=== PATIENT | male | born 1970 | race Hispanic/Latino ===

== ENCOUNTER 2017-11-26 04:10 | Emergency (ER) | payer OTHER ==
--- NOTE | 2017-11-26 04:30 | EDPHYS ---
Physician Documentation [facility] Name: Waqar Sebastian Age: 47 yrs Sex: Male : 1970 Arrival Date: 11/26/2017 Time: 04:12 Bed 5 Private MD: ED Physician Da Garcia HPI: 11/26 04:27 This 47 yrs old Male presents to ER via Ambulatory with complaints of Allergic pkl Reaction. 04:27 The patient's rash thought to be caused by an unknown cause. The rash is located on the pkl body diffusely. The rash can be described as urticarial. Onset: The symptoms/episode began/occurred 2 week(s) ago. Associated signs and symptoms: Pertinent positives: itching. Historical: - Allergies: 04:24 No Known Allergies; bb - Home Meds: 04:24 None [Active]; bb - PMHx: 04:24 None; bb - PSHx: 04:24 None; bb - Immunization history:: Adult Immunizations up to date. - Social history:: Smoking status: Patient/guardian denies using tobacco, Patient/guardian denies using alcohol, street drugs. - Ebola Screening: : No symptoms or risks identified at this time. ROS: 04:27 Eyes: Negative for injury, pain, redness, and discharge, ENT: Negative for injury, pkl pain, and discharge, Neck: Negative for injury, pain, and swelling, Cardiovascular: Negative for chest pain, palpitations, and edema, Respiratory: Negative for shortness of breath, cough, wheezing, and pleuritic chest pain, Abdomen/GI: Negative for abdominal pain, nausea, vomiting, diarrhea, and constipation, Back: Negative for injury and pain, : Negative for injury, bleeding, discharge, and swelling, MS/Extremity: Negative for injury and deformity, Neuro: Negative for headache, weakness, numbness, tingling, and seizure. 04:27 Skin: Positive for rash, diffusely. Exam: 04:27 Head/Face: Normocephalic, atraumatic. Eyes: Pupils equal round and reactive to light, pkl extra-ocular motions intact. Lids and lashes normal. Conjunctiva and sclera are non-icteric and not injected. Cornea within normal limits. Periorbital areas with no swelling, redness, or edema. ENT: Nares patent. No nasal discharge, no septal abnormalities noted. Tympanic membranes are normal and external auditory canals are clear. Oropharynx with no redness, swelling, or masses, exudates, or evidence of obstruction, uvula midline. Mucous membranes moist. Neck: Trachea midline, no thyromegaly or masses palpated, and no cervical lymphadenopathy. Supple, full range of motion without nuchal rigidity, or vertebral point tenderness. No Meningismus. Chest/axilla: Normal chest wall appearance and motion. Nontender with no deformity. No lesions are appreciated. Cardiovascular: Regular rate and rhythm with a normal S1 and S2. No gallops, murmurs, or rubs. Normal PMI, no JVD. No pulse deficits. Respiratory: Lungs have equal breath sounds bilaterally, clear to auscultation and percussion. No rales, rhonchi or wheezes noted. No increased work of breathing, no retractions or nasal flaring. Abdomen/GI: Soft, non-tender, with normal bowel sounds. No distension or tympany. No guarding or rebound. No evidence of tenderness throughout. Back: No spinal tenderness. No costovertebral tenderness. Full range of motion. MS/ Extremity: Pulses equal, no cyanosis. Neurovascular intact. Full, normal range of motion. Neuro: Awake and alert, GCS 15, oriented to person, place, time, and situation. Cranial nerves II-XII grossly intact. Motor strength 5/5 in all extremities. Sensory grossly intact. Cerebellar exam normal. Normal gait. 04:27 Skin: rash can be described as urticarial, and is diffusely located. Vital Signs: 04:24 BP 141 / 95; Pulse 63; Resp 16 S; Temp 98.4(O); Pulse Ox 96% on R/A; Weight 83.91 kg bb (R); Height 5 ft. 11 in. (180.34 cm) (R); Pain 6/10; 04:24 Body Mass Index 25.80 (83.91 kg, 180.34 cm) bb MDM: 04:15 Patient medically screened. pkl 04:27 Data reviewed: vital signs, nurses notes. pkl Administered Medications: 04:32 Drug: SOLU-Medrol 125 mg Route: IM; Site: left gluteus; bs1 04:37 Follow up: Response: No adverse reaction bp Disposition: 11/26/17 04:30 Discharged to Home. Impression: Urticaria. - Condition is Stable. - Medication Reconciliation Form, Thank You Letter, Antibiotic Education, Prescription Opioid Use form. - Follow up: Rio Burks MD; When: 2 - 3 days; Reason: Re-evaluation by your physician. - Problem is new. - Symptoms have improved. Signatures: Da Garcia MD MD pkl Amy Sullivan, RN RN bb Veronica Bryant RN RN bs1 Niels Sr RN bp Corrections: (The following items were deleted from the chart) 04:38 04:30 11/26/2017 04:30 Discharged to Home. Impression: Urticaria. Condition is Stable. bb Forms are Medication Reconciliation Form, Thank You Letter, Antibiotic Education, Prescription Opioid Use. Follow up: Rio Burks; When: 2 - 3 days; Reason: Re-evaluation by your physician. Problem is new. Symptoms have improved. pkl
--- NOTE | 2017-11-26 04:30 | ER ---
Nurse's Notes [facility] Name: Waqar Sebastian Age: 47 yrs Sex: Male : 1970 Arrival Date: 11/26/2017 Time: 04:12 Bed 5 Private MD: Diagnosis: Urticaria Presentation: 11/26 04:21 Presenting complaint: Patient states: he has some type of "bumps" on his neck his bb elbows, his forearms and his hands for about 2 weeks which is itchy. Transition of care: patient was not received from another setting of care. Onset: The symptoms/episode began/occurred 2 week(s) ago. Anaphylaxis evaluation, no signs or symptoms of anaphylaxis were noted. Onset of symptoms is unknown. Risk Assessment: Do you want to hurt yourself or someone else? Patient reports no desire to harm self or others. Risk Assessment: Do you want to hurt yourself or someone else? Patient reports no desire to harm self or others. Initial Sepsis Screen: Does the patient meet any 2 criteria? No. Patient's initial sepsis screen is negative. Does the patient have a suspected source of infection? No. Patient's initial sepsis screen is negative. Care prior to arrival: None. 04:21 Method Of Arrival: Ambulatory bb 04:21 Acuity: PAPI 5 bb Historical: - Allergies: 04:24 No Known Allergies; bb - Home Meds: 04:24 None [Active]; bb - PMHx: 04:24 None; bb - PSHx: 04:24 None; bb - Immunization history:: Adult Immunizations up to date. - Social history:: Smoking status: Patient/guardian denies using tobacco, Patient/guardian denies using alcohol, street drugs. - Ebola Screening: : No symptoms or risks identified at this time. Screenin:32 Abuse screen: Denies threats or abuse. Denies injuries from another. Nutritional bp screening: No deficits noted. Tuberculosis screening: No symptoms or risk factors identified. Fall Risk None identified. Assessment: 04:20 General: Appears in no apparent distress. comfortable, Behavior is calm, cooperative, bp appropriate for age. Pain: Denies pain. Neuro: Level of Consciousness is awake, alert, obeys commands, Oriented to person, place, time, situation, Appropriate for age. Cardiovascular: No deficits noted. Respiratory: Airway is patent Respiratory effort is even, unlabored, Respiratory pattern is regular, symmetrical, Breath sounds are clear bilaterally. GI: No signs and/or symptoms were reported involving the gastrointestinal system. : No signs and/or symptoms were reported regarding the genitourinary system. EENT: No deficits noted. Derm: Rash noted that is urticaria. Musculoskeletal: Circulation, motion, and sensation intact. Range of motion: intact in all extremities. 04:37 Reassessment: pt verbalized understanding of and agrees to plan of care discharge bb instructions given pt ambulated with steady gait to exit. Vital Signs: 04:24 BP 141 / 95; Pulse 63; Resp 16 S; Temp 98.4(O); Pulse Ox 96% on R/A; Weight 83.91 kg bb (R); Height 5 ft. 11 in. (180.34 cm) (R); Pain 6/10; 04:24 Body Mass Index 25.80 (83.91 kg, 180.34 cm) bb ED Course: 04:12 Patient arrived in ED. am2 04:15 Da Garcia MD is Attending Physician. pkl 04:21 Niels Sr, SANJUANITA is Primary Nurse. bp 04:23 Triage completed. bb 04:24 Arm band placed on Patient placed in an exam room, on a stretcher, on pulse oximetry. bb 04:29 Rio Burks MD is Referral Physician. pkl 04:32 Patient has correct armband on for positive identification. Bed in low position. Call bp light in reach. Side rails up X2. 04:36 No provider procedures requiring assistance completed. Patient did not have IV access bp during this emergency room visit. Administered Medications: 04:32 Drug: SOLU-Medrol 125 mg Route: IM; Site: left gluteus; bs1 04:37 Follow up: Response: No adverse reaction bp Outcome: 04:30 Discharge ordered by . pkl 04:37 Discharged to home ambulatory. bb 04:37 Condition: stable 04:37 Discharge instructions given to patient, Instructed on discharge instructions, follow up and referral plans. medication usage, Demonstrated understanding of instructions, follow-up care, medications, Prescriptions given X 3. 04:38 Patient left the ED. bb Signatures: Da Garcia MD MD pkl Ballard, Brenda, RN RN bb Oneida Hanna am2 Niels Sr, RN RN bp Veronica Bryant, RN RN bs1
[2017-11-26] MEDS ORDERED: METHYLPREDNISOLONE 125 MG INJ ONE (04:33)
== END 2017-11-26 04:38 | disposition home or self-care (01) ==
LOC: ER 04:10
DX: L50.9 Urticaria, unspecified (principal)
CPT/HCPCS: 96372; 99283; J2930